=== PATIENT | female | born 1940 | race Hispanic/Latino ===

== ENCOUNTER 2022-10-15 15:22 | Outpatient (CLI) | payer MEDICARE, SELFPAY ==
[2022-10-15 15:46] LABS: Basophils Absolute Auto 0.1 K/mm3 (0.0-0.1); Basophils Percent Auto 0.7 % (0.2-1.2); Eosinophils Absolute Auto 0.3 K/mm3 (0-0.3); Eosinophils Percent Auto 3.5 % (0-4.4); Hematocrit 35.9 % (37.0-47.0); Immature Granulocyte Absolute 0.03 K/mm3 (0.00-0.031); Immature Granulocyte Percent A 0.4 % (0-0.5); Lymphocytes Absolute Auto 1.35 K/mm3 (0.9-3.2); Lymphocytes Percent Auto 19.1 % (18.3-44.2); Mean Corpuscular HGB Conc 33.4 g/dl (32-36); Mean Corpuscular Hemoglobin 31.2 pg (26-34); Mean Corpuscular Volume 93.2 fl (80-100); Mean Platelet Volume 10.4 fl (7.4-10.4); Monocytes Absolute Auto 0.6 K/mm3 (0.1-0.6); Monocytes Percent Auto 8.9 % (2.6-8.5); Neutrophils Absolute Auto 4.8 K/mm3 (1.3-6.7); Neutrophils Percent Auto 67.4 % (45.5-73.1); Platelet Count Result 185 k/mm3 (150-375); Red Blood Count 3.85 M/mm3 (4.2-5.4); Red Cell Distribution Width 13.7 % (11.5-14.5); White Blood Count 7.1 K/mm3 (4.5-10.0)
[2022-10-15 16:32] LABS: Alanine Aminotransferase 37 U/L (6-35); Albumin Level 4.5 g/dL (3.5-5.1); Alkaline Phosphatase 81 U/L (38-126); Anion Gap 6 mmol/L (8-16); Aspartate Amino Transferase 37 U/L (14-36); Bilirubin,Total 0.5 mg/dL (0.2-1.3); Blood Urea Nitrogen 24 mg/dL (7-17); Calcium 9.2 mg/dL (8.4-10.2); Carbon Dioxide 27 mmol/L (22-30); Chloride 105 mmol/L (98-107); Estimated Glomerular Filt Rate 43; Glucose 96 mg/dL (65-110); Potassium 4.2 mmol/L (3.4-5.0); Sodium 138 mmol/L (137-145)
[2022-10-15 16:48] LABS: Immunoglobulin A 475 mg/dL (70-400); Immunoglobulin G 808 mg/dL (700-1600); Immunoglobulin M 136 mg/dL (40-230)
[2022-10-18 13:20] LABS: Kappa\\Lambda Light Chains 0.17 (0.26-1.65)
[2022-10-18 16:10] LABS: Albumin 4.2 g/dL (3.8-4.8); Alpha 1 Globulin 0.3 g/dL (0.2-0.3); Alpha 2 Globulin 0.6 g/dL (0.5-0.9); Beta 1 Globulin 0.5 g/dL (0.4-0.6); Gamma Globulin 0.8 g/dL (0.8-1.7)
== END 2022-10-15 15:23 | disposition home or self-care (01) ==
LOC: ANHLAB 15:30
PROVIDERS: Visit Provider Internal Medicine Hematology & Oncology
DX: D72.9 Disorder of white blood cells, unspecified (principal)
CPT/HCPCS: 36415; 80053; 82784; 83883; 84155; 84165; 85025

== ENCOUNTER 2022-10-15 15:55 | Outpatient (CLI) | payer MEDICARE, SELFPAY ==
--- NOTE | ~2022-10-15 | XR_ITS ---
XR bone survey comp/metastic 10/15/2022 16:36 Indication: Plasma cell disorder Procedure: Complete bone survey. 29 images submitted for interpretation. Comparison: No prior studies for comparison. Findings: There is a sclerotic lesion of the right femoral neck, nonspecific. 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 Accentuated thoracic kyphosis. There is levoscoliosis of the lumbar spine. No fracture or traumatic malalignment. There are subtle lytic defects of the right radius and first metacarpal. Ther e is possible lytic defect of the left mandible. Impression: 1: Subtle lytic defects of the left radius and first metacarpal and possibly the mandible on the left . Sclerotic defect of the right femoral neck. Consider metastatic disease and myeloma. Reviewed, dictated and finalized at location L. Impression: 1: Subtle lytic defects of the left radius and first metacarpal and possibly th e mandible on the left. Sclerotic defect of the right femoral neck. Consider me tastatic disease and myeloma.
== END 2022-10-15 15:56 | disposition home or self-care (01) ==
LOC: ANHIMG 15:57
PROVIDERS: PCP Internal Medicine Hematology & Oncology; Visit Provider Internal Medicine Hematology & Oncology
DX: D72.9 Disorder of white blood cells, unspecified (principal)
CPT/HCPCS: 36415; 77075; 80053; 82784; 83883; 84155; 84165; 85025

== ENCOUNTER 2023-05-03 08:25 | Outpatient (CLI) | payer MEDICARE, SELFPAY ==
[2023-05-03 08:41] LABS: Basophils Absolute Auto 0.1 K/mm3 (0.0-0.1); Basophils Percent Auto 0.7 % (0.2-1.2); Eosinophils Absolute Auto 0.3 K/mm3 (0-0.3); Eosinophils Percent Auto 2.8 % (0-4.4); Hematocrit 36.9 % (37.0-47.0); Immature Granulocyte Absolute 0.04 K/mm3 (0.00-0.031); Immature Granulocyte Percent A 0.4 % (0-0.5); Lymphocytes Absolute Auto 1.71 K/mm3 (0.9-3.2); Lymphocytes Percent Auto 17.6 % (18.3-44.2); Mean Corpuscular HGB Conc 32.5 g/dl (32-36); Mean Corpuscular Hemoglobin 30.4 pg (26-34); Mean Corpuscular Volume 93.4 fl (80-100); Mean Platelet Volume 10.9 fl (7.4-10.4); Monocytes Absolute Auto 0.7 K/mm3 (0.1-0.6); Monocytes Percent Auto 7.3 % (2.6-8.5); Neutrophils Absolute Auto 6.9 K/mm3 (1.3-6.7); Neutrophils Percent Auto 71.2 % (45.5-73.1); Platelet Count Result 181 k/mm3 (150-375); Red Blood Count 3.95 M/mm3 (4.2-5.4); Red Cell Distribution Width 12.7 % (11.5-14.5); White Blood Count 9.7 K/mm3 (4.5-10.0)
[2023-05-03 16:36] LABS: Alanine Aminotransferase 39 U/L (6-35); Albumin Level 4.4 g/dL (3.5-5.1); Alkaline Phosphatase 87 U/L (38-126); Anion Gap 9 mmol/L (8-16); Aspartate Amino Transferase 34 U/L (14-36); Bilirubin,Total 0.7 mg/dL (0.2-1.3); Blood Urea Nitrogen 25 mg/dL (7-17); Calcium 10.1 mg/dL (8.4-10.2); Carbon Dioxide 27 mmol/L (22-30); Chloride 105 mmol/L (98-107); Estimated Glomerular Filt Rate 43; Glucose 100 mg/dL (65-110); Immunoglobulin A 497 mg/dL (70-400); Immunoglobulin G 814 mg/dL (700-1600); Immunoglobulin M 125 mg/dL (40-230); Potassium 4.7 mmol/L (3.4-5.0); Sodium 141 mmol/L (137-145)
[2023-05-06 23:38] LABS: Lambda Light Chain 142.1 mg/L (5.7-26.3)
[2023-05-07 09:00] LABS: Abnormal Protein Band 1 0.5 g/dL; Albumin 4.1 g/dL (3.8-4.8); Alpha 1 Globulin 0.4 g/dL (0.2-0.3); Alpha 2 Globulin 0.6 g/dL (0.5-0.9); Beta 1 Globulin 0.5 g/dL (0.4-0.6); Gamma Globulin 0.9 g/dL (0.8-1.7)
== END 2023-05-03 08:26 | disposition home or self-care (01) ==
PROVIDERS: PCP Internal Medicine Hematology & Oncology; Visit Provider Internal Medicine Hematology & Oncology
DX: D72.9 Disorder of white blood cells, unspecified (principal)
CPT/HCPCS: 36415; 80053; 82784; 83883; 84155; 84165; 85025

== ENCOUNTER 2023-11-11 11:56 | Outpatient (CLI) | payer MEDICARE, SELFPAY ==
[2023-11-11 12:19] LABS: Basophils Absolute Auto 0.1 K/mm3 (0.0-0.1); Basophils Percent Auto 0.9 % (0.2-1.2); Eosinophils Absolute Auto 0.4 K/mm3 (0-0.3); Eosinophils Percent Auto 4.9 % (0-4.4); Hematocrit 35.9 % (37.0-47.0); Hemoglobin 11.2 g/dL (12.0-15.0); Immature Granulocyte Absolute 0.03 K/mm3 (0.00-0.031); Immature Granulocyte Percent A 0.3 % (0-0.5); Lymphocytes Absolute Auto 1.38 K/mm3 (0.9-3.2); Mean Corpuscular HGB Conc 31.2 g/dl (32-36); Mean Corpuscular Hemoglobin 30.4 pg (26-34); Mean Corpuscular Volume 97.6 fl (80-100); Mean Platelet Volume 10.2 fl (7.4-10.4); Monocytes Absolute Auto 0.7 K/mm3 (0.1-0.6); Monocytes Percent Auto 7.9 % (2.6-8.5); Platelet Count Result 220 k/mm3 (150-375); Red Blood Count 3.68 M/mm3 (4.2-5.4); Red Cell Distribution Width 13.5 % (11.5-14.5); White Blood Count 8.6 K/mm3 (4.5-10.0)
[2023-11-11 13:46] LABS: Immunoglobulin A 537 mg/dL (70-400); Immunoglobulin G 680 mg/dL (700-1600); Immunoglobulin M 122 mg/dL (40-230)
[2023-11-11 17:29] LABS: Alanine Aminotransferase 23 U/L (6-35); Albumin Level 4.3 g/dL (3.5-5.1); Alkaline Phosphatase 88 U/L (38-126); Anion Gap 9 mmol/L (4-12); Aspartate Amino Transferase 34 U/L (14-36); Bilirubin,Total 0.6 mg/dL (0.2-1.3); Blood Urea Nitrogen 19 mg/dL (7-17); Calcium 9.9 mg/dL (8.4-10.2); Carbon Dioxide 28 mmol/L (22-30); Chloride 103 mmol/L (98-107); Estimated Glomerular Filt Rate 39; Glucose 97 mg/dL (65-110); Potassium 4.6 mmol/L (3.4-5.0); Sodium 140 mmol/L (137-145)
[2023-11-12 11:43] LABS: Kappa\\Lambda Light Chains 0.14 (0.26-1.65); Lambda Light Chain 214.5 mg/L (5.7-26.3)
[2023-11-13 01:57] LABS: Protein, Total 6.4 g/dL (6.1-8.1)
[2023-11-13 14:58] LABS: Abnormal Protein Band 1 0.5 g/dL (NONE DETECTED); Albumin 3.7 g/dL (3.8-4.8); Alpha 1 Globulin 0.4 g/dL (0.2-0.3); Alpha 2 Globulin 0.5 g/dL (0.5-0.9); Beta 1 Globulin 0.5 g/dL (0.4-0.6); Gamma Globulin 0.7 g/dL (0.8-1.7)
== END 2023-11-11 11:57 | disposition home or self-care (01) ==
LOC: ANHLAB 12:00
PROVIDERS: PCP Internal Medicine Hematology & Oncology; Visit Provider Internal Medicine Hematology & Oncology
DX: D72.9 Disorder of white blood cells, unspecified (principal)
CPT/HCPCS: 36415; 80053; 82784; 83883; 84155; 84165; 85025

== ENCOUNTER 2024-11-11 09:45 | Outpatient (CLI) | payer MEDICARE, SELFPAY ==
--- OUTSIDE RECORDS SUMMARY | 2024-11-11 09:51 | XMS_ITS | Clinical Summary ---
Author Organization [facility] Address [address] [place] [address] Care Team Providers Care Senior Information Security Engineer Name Role Phone Alana Donis MD Primary Care Provider Allergies No known active allergies Medications albuterol sulfate HFA 108 (90 Base) MCG/ACT inhaler INHALE 1 TO 2 PUFFS BY MOUTH EVERY 6 HOURS NEEDED FOR WHEEZING 3 Active amLODIPine (NORVASC) 5 MG tablet Take 1 tablet (5 mg total) by mouth daily. 3 Active vitamin C (ASCORBIC ACID) 500 MG tablet Active vitamin B-12 (CYANOCOBALAMIN ) (CYANOCOBALAMIN ) 1000 mcg tablet Take 1 tablet (1,000 mcg total) by mouth daily. Active fluticasone-jorge alberto meterol (ADVAIR DISKUS) 100-50 MCG/ACT inhaler Inhale 1 puff into the lungs 2 (two) times daily. 3 Active gabapentin (NEURONTIN) 600 MG tablet TAKE 1 TABLET(600 MG) BY MOUTH EVERY NIGHT 3 Active levothyroxine (SYNTHROID) 50 MCG tablet TAKE 1 TABLET(50 MCG) BY MOUTH EVERY MORNING BEFORE BREAKFAST 3 Active lisinopril (PRINIVIL) 40 MG tablet Take 1 tablet (40 mg total) by mouth daily. 3 Active simvastatin (ZOCOR) 20 MG tablet Take 1 tablet (20 mg total) by mouth daily. 3 Active olopatadine (PATADAY) 0.1 % ophthalmic solution Place 1 drop into the right eye 2 (two) times daily. 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 Gender Identity Not on file Sexual Orientation Not on file Last Filed Vital Signs Vital Sign Reading Time Taken Comments Blood Pressure 135/63 08/13/2023 9:06 AM CDT Pulse 82 08/13/2023 9:06 AM CDT Temperature 36.7 C (98 F) 08/13/2023 9:06 AM CDT Respiratory Rate 16 08/13/2023 9:06 AM CDT Oxygen Saturation 96% 08/13/2023 9:06 AM CDT Inhaled Oxygen Concentration - - Weight 65.8 kg (145 lb) 08/13/2023 9:06 AM CDT Height 160 cm (5' 3) 08/13/2023 9:06 AM CDT Body Mass Index 25.69 08/13/2023 9:06 AM CDT Plan of Treatment Health Maintenance Due Date Last Done Comments Zoster Vaccines (1 of 2) 01/21/1988 Annual Medicare Wellness Visit 2003 COVID-19 Vaccine (1 - 2023-2 5 season) 2023 DTaP, Tdap and Td Vaccines ( 2 - Td or Tdap) 12/29/2032 12/29/2022 Pneumococcal Vaccine: 50+ Years Completed RSV Immunization or 60+ Years Completed 12/29/2022 Meningococcal B Vaccine Aged Out No l onger eligible based on patient's age to complete this topic Meningococcal Vaccine Aged Out No porter shawn eligible based on patient's age to complete this topic RSV Immunizations Under 20 Months Aged Out No longer eligible based on patient's age to complete this topic Insurance HUMAN Care Teams Senior Information Security Engineer Relationship Specialty Start Date End Date Alana Donis MD [address] [place], [place] [phone] PCP - General FAMILY PRACTICE 05/09/23
--- OUTSIDE RECORDS SUMMARY | 2024-11-11 09:51 | XMS_ITS | Clinical Summary ---
Author Organization [facility] Gigi Zhu Address [address] [place] [address] Care Team Providers Care Cableway Operator Name Role Phone Unavailable Primary Care Provider Unavailabl e Allergies No known active allergies Medications lisinopriL (PRINIVIL) 40 mg tablet Take 40 mg by mouth daily. 09/10/2022 Active levothyroxine 50 mcg tablet Take 50 mcg by mouth. 08/16/2022 Active amLODIPine (NORVASC) 5 mg tablet Take 5 mg by mouth daily. 08/16/2022 Active cyanocobalamin 1,000 mcg Tablet Take 1,000 mcg by mouth daily. Active gabapentin (NEURONTIN) 600 mg tablet TAKE 1 TABLET(600 MG) BY MOUTH EVERY NIGHT 11/18/2022 Active Creon 36,000-114,000- 180,000 unit capsule TAKE 1 CAPSULE BY MOUTH THREE TIMES DAILY BEFORE MEALS 08/23/2023 Active ondansetron (ZOFRAN ODT) 4 mg Tablet, Rapid Dissolve Take 4 mg by mouth. 10/26/2023 Active polymyxin B sulf-trimethopr im (POLYTRIM) 10,000 unit- 1 mg/mL solution 2 Drops every 6 hours. 08/21/2023 Active promethazine (PHENERGAN) 25 mg tablet TAKE 1/2 TABLET BY MOUTH EVERY 6 HOURS NEEDED 11/12/2023 Active simvastatin (ZOCOR) 20 mg tablet Take 20 mg by mouth daily at bedtime. 08/16/2022 Active tobramycin-dexA METHasone (TOBRADEX) 0.3-0.1 % suspension 09/18/2023 Active Active Problems No known active problems Encounters Date Type Department Care Team Description 10/20/2024 Orders Only [facility] Oncology and Hematology - [place] [address] [place] [address] Vishal Sosa MD 10/14/2024 External Device Data STL ABSTRACTION Provider, Abstract 10/13/2024 External Device Data STL ABSTRACTION Provider, Abstract 10/13/2024 Abstract [facility] Oncology and Hematology [facility] [address] [place] [address] Vishal Sosa MD 09/17/2024 External Device Data STL ABSTRACTION Provider, Abstract 09/16/2024 External Device Data STL ABSTRACTION Provider, Abstract 09/15/2024 External Device Data STL ABSTRACTION Provider, Abstract from Last 3 Months Family History Medical History Relation Name Comments Heart Disease Father Esophageal Cancer Mother Colon Cancer Sister 7 Relation Name Status Comments Father Mother Sister 1 Alive Sister 2 Alive Sister 3 Alive Sister 4 Alive Sister 5 Alive Sister 6 Alive Sister 7 Son 1 Alive Son 2 Alive Social History Tobacco Use Types Packs/Day Years Used Date Smoking Tobacco: Never Smokeless Tobacco: Never Tobacco Cessation:Counseling Given: Not Answered Alcohol Use Standard Drinks/Week Comments Never 0 (1 standard drink = 0.6 oz pur e alcohol) Comments Unknown Sex and Gender Information Value Date Recorded Sex Assigned at Not on file Legal Sex Female 10:59 AM CDT Gender Identity Not on file Sexual Orientation Not on file Last Filed Vital Signs Vital Sign Reading Time Taken Comments Blood Pressure 141/80 05/20/2024 10:09 AM COMMUNITY SERVICE DIRECTOR Pulse 88 05/20/2024 10:07 AM COMMUNITY SERVICE DIRECTOR Temperature 36.7 C (98 F) 05/20/2024 10:07 AM COMMUNITY SERVICE DIRECTOR Respiratory Rate 15 05/20/2024 10:07 AM COMMUNITY SERVICE DIRECTOR Oxygen Saturation 96% 05/20/2024 10:07 AM COMMUNITY SERVICE DIRECTOR Inhaled Oxygen Concentration - - Weight 59.7 kg (131 lb 9.6 oz) 05/20/2024 10:07 AM COMMUNITY SERVICE DIRECTOR Height 160 cm (5' 3) 10/15/2022 2:37 PM CDT Body Mass Index 23.31 10/15/2022 2:37 PM CDT Plan of Treatment Upcoming Encounters Date Type Department Care Team (Late st Contact Info) Description 11/25/2024 10:15 AM CDT Office Visit [facility] Oncology and Hematology - [place] [address] [place] [address] Vishal Sosa MD [address] [facility] [facility] [address] [place] [address] Health Maintenance Due Date Last Done Comments ZOSTER VACCINE (1 of 2) 01/21/1988 RSV VACCINE (60+ or ) (1 - 1-dose 75+ series) 2013 Medicare Advantage ([place]) Prev entative Visit/Annual Wellness Visit 04/29/2024 INFLUENZA VACCINE (#1) 2024 , 01/31/2023, 01/04/2022 OSTEOPOROSIS SCREENING 07/11/2027 07/10/2022, 2022 DTAP/TDAP/TD VACCINES (2 - T d or Tdap) 12/29/2032 12/29/2022 PNEUMOCOCCAL VACCINE 50+ YEARS Completed 01/04/2022 Insurance [employer] [facility]
--- OUTSIDE RECORDS SUMMARY | 2024-11-11 09:51 | XMS_ITS | Data Portability ---
Author Organization [facility] [employer], Main Office Address [address] [place] [address] Care Team Providers Care Stock Order Lister Name Role Phone BEBE DONIS Primary Care Provider Assessment No assessment recorded. Plan of Treatment Reminders Order Date Submit Date Provider Last Modified By Organization Details Last Modified Time Details Appointments None recorded. Lab pancreatic elastase, stool 2022 023 [facility], [address] [place] [address], [address], 3 14:10:34 fecal fat, qualitative , stool 2022 023 [facility], [address] [place] [address], [address], 3 12:03:04 celiac disease comprehensi ve panel, serum 2022 023 [facility], [address] [place] [address], [address], 3 14:01:03 PTH (parathyroi d hormone), intact + calcium, serum or plasma [address] [facility], [address] [place] [address], [address], 3 14:39:02 calcium, ionized, blood [address] [facility], [address] [place] [address], [address], 3 14:39:03 phosphorus, serum or plasma [address] [facility], [address] [place] [address], [address], 3 14:39:02 CMP, serum or plasma 2022 023 [facility], [address] [place] [address], [address], 3 12:08:47 vitamin D, 25-hydroxy, total, serum 2022 023 [facility], [address] [place] [address], [address], 3 14:01:07 phosphorus, serum or plasma [address], [address] [place] [address], [address], 3 14:39:02 spep + immunoglobu nabeel, serum [address], [address] [place] [address], [address], 3 14:39:03 immunofixat ion, serum 2022 023 [facility], [address] [place] [address], [address], 3 15:52:35 TSH, serum or plasma [address] [facility], [address] [place] [address], [address], 3 14:39:02 T3, free, serum or plasma [address], [address] [place] [address], [address], 3 14:39:02 T4, free, serum 2022 023 [email or web address] [facility], [address] [place], [address], 14:39:02 Referral None recorded. Procedures None recorded. Surgeries None recorded. Imaging None recorded. Medication Orders Creon 36,000 unit-114,00 0 unit-180,00 0 unit capsule,del ayed release 2022 023 [id number], [address] [place], [place], [id number], 10:45:13 Unithroid 50 mcg tablet 2022 023 [facility][id number], [address] [place], [place], [id number], 10:45:59 Patient TargetsNo targets recorded. Patient InstructionsNo instructions recorded. Reason for Referral None Reported. Results Created Date Observation Date Name Description Value Unit Range Abnormal Flag Note LastModifiedBy Organization Detail LastModifiedTime Result Notes None recorded. Problems Name Problem SNOMED Code Status Onset Date Resolution Date Notes Provider Name and Address Organization Details Recorded Time Hypercalcemia 24708600 Active 2022 MD Paxton Palom[address], [place], [address], [employer] [facility] [employer] 3 14:35:44 Hypothyroidism 40646113 Active 2022 MD Paxton [address], [place], [address], [employer] 3 14:37:31 Loose stool 434473003 Active 2022 MD Paxton [address], [address], [facility] [employer] 3 14:38:13 Protein electrophoresi s outside reference range 172817429 Active 2022 MD Paxton [address], [place], [address], [facility] [employer] [facility] 3 16:34:10 Exocrine pancreatic insufficiency 95262460 Active 2022 Snow Mejía MD [address], [place], [address], [facility] [employer] [facility] 3 10:41:57 Problem Notes None recorded. Procedures Surgical History Date Name Laterality Status Provider Name and Address Organization Details Recorded Time Gallbladder Surgery completed Malika Cowart [facility] [employer] [facility] 07/30/2022 14:25:34 Carpal tunnel completed Malika Cowart [facility] [employer] [facility] 07/30/2022 14:25:41 Imaging Results None recorded. Procedure Notes None recorded. Medical Equipment None Reported. Allergies No known drug allergies Medications Name Sig Start Date Stop Date Status Note LastModified by Organization Details LastModified Time gabapentin 600 mg tablet active Not Available Not Available Not Available azithromyci n 250 mg tablet TAKE 1 TABLET BY MOUTH DAILY FOR 4 DAYS 11/29 completed Not Available Not Available Not Available ibuprofen 800 mg tablet take 1 tablet by mouth three times a day if needed with food 11/29 completed Not Available Not Available Not Available cephalexin 250 mg capsule 11/29 completed Not Available Not Available Not Available acetaminoph en 300 mg-codeine 30 mg tablet TAKE 1 TABLET BY MOUTH EVERY 6 HOURS NEEDED FOR PAIN 11/29 completed Not Available Not Available Not Available amlodipine 5 mg tablet take 1 tablet by mouth once daily active Not Available Not Available No t Available quinapril 40 mg tablet TAKE 1 TABLET BY MOUTH EVERY DAY 07/31 completed Not Available Not Available Not Available hydrocodone -homatropin e 5 mg-1.5 mg tablet TAKE 1 TABLET BY MOUTH FOUR TIMES DAILY NEEDED FOR COUGH 11/29 completed Not Available Not Available Not Available benzonatate 100 mg capsule TAKE 1 CAPSULE BY MOUTH EVERY EIGHT HOURS 11/29 completed Not Available Not Available Not Available simvastatin 20 mg tablet TAKE 1 TABLET BY MOUTH EVERY DAY IN THE EVENING active Not Available Not Available No t Available Unithroid 50 mcg tablet Take 1 tablet every day by oral route in the morning for 90 days. 2022 active Not Available Not Available Not Avai lable gabapentin 300 mg capsule 11/29 completed Not Available Not Available Not Available albuterol sulfate HFA 90 mcg/actuati on aerosol inhaler INHALE 1 TO 2 PUFFS BY MOUTH EVERY 6 HOURS NEEDED FOR WHEEZING active Not Available Not Available No t Available lisinopril 40 mg tablet active Not Available Not Available Not Available Creon 36,000 unit-114,00 0 unit-180,00 0 unit capsule,del ayed release TAKE 1 CAPSULE BY MOUTH THREE TIMES DAILY BEFORE MEALS active Not Available Not Available No t Available Vitals Date Recorded Body weight Body temperature Heart rate Systolic And Diastolic Provider Name and Address Organization Details Last Updated DateTime 07/31/2022 20568.67 g 97.5 [degF] 80 /min 128/80 mm[Hg] TRACIE Puente [facility] [employer] [facility] 07/31/2022 14:07:39 Date Recorded Body weight Body mass index (BMI) Body height Heart rate Systolic And Diastolic Provider Name and Address Organization Details Last Updated DateTime 11/29/2022 57328.58 g 25.5 kg/m2 160.02 cm 88 /min 137/81 mm[Hg] Darcie Alexis [facility] [employer] [facility] 11/29/2022 10:24:38 Social History Question Answer Notes LastModified by Organizat ion Details LastModified Time Tobacco Smoking Status Never Smoker TRACIE Jalloh [facility] [employer] [facility] 07/30/2022 14:25:03 What Is Your Level Of Caffeine Consumption? Occasional Information not available 07/30/2022 What Type Of Diet Are You Following? REGULAR Information not available 07/30/2022 Sex: Unknown Functional Status None recorded. Mental Status None recorded. Family History Relationship Description Onset Age of this Age Resolved Age Notes LastModified by Organization Details LastModified Time Mother Malignant tumor of pharynx clouvier Not available 2022 14:25:16 Medical History Condition Response THYROID DISEASE Y HEART ARRHYTHMIA Y HYPERTENSION Y Gynecological HistoryNo gynecological history recorded. Obstetrics History GPAL:G 0 P 0 0 0 0 Past Encounters Encounter ID Performer Location Encounter Start Date Encounter Closed Date Diagnosis/Indication Diagnosis SNOMED-CT Code Diagnosis ICD10 Code Diagnosis Note [id number] Snow Mejía MD [facility] [address] [place] [address] 07/31/2022 13:54:33 07/31/2022 14:45:57 Hypercalcemia 77867433 E83.52 Send for full parathyroi d panel along with SPEP/immun ofixation to screen for secondary causes of hypercalce christopher. Patient is not taking any additional sources of calcium such as tums or rolaids or calcium containing antacids and was encouraged to abstain from these supplement s Hypothyroidism 10369844 E03.9 Continue on LT4 50 mcg daily. She was reminded to take her LT4 on empty stomach with glass of water and wait one hour to eat or have her coffee in morning and up to 4 hours if ever taking any heartburn or reflux medication s to help optimize absorption . Loose stool 089347862 R1 9.5 Send for elastase and fecal fat to screen for EPI or malabsorpt ion. Spent up to 45 minutes preparing to see the patient (eg, review of tests), obtaining and/or reviewing separately obtained history, performing a medically appropriat e examinatio n and evaluation , counseling and educating the patient, ordering medication s, tests, along with documentin g clinical informatio n in the electronic health record, independen tly interpreti ng results and communicat ing results to the patient. RTC in 3-4 months. Patient was provided a handwritte n lab order which contains our fax number. If she chooses to go outside of the [facility] system to obtain labwork she was advised to provide our fax number and my informatio n to the lab she will be obtaining labwork from in order to have her labs properly forwarded over for me to review so there is no loss of follow up due to use of outside network. She was also advised to contact our clinic informing us that she has completed her labwork so we are aware we will need to reach out to the appropriat e laboratory to request her results be forwarded to us so I might have the ability to review and make further medical decision making in her case. She voiced understand ing. Thank you for this consultati on. [id number] MD JESSICA [facility] [address] [place] [address] 11/29/2022 10:11:04 11/29/2022 10:48:13 Hypothyroidism 14949764 E03.9 Continue on unithroid 50 mcg daily. She was reminded to take her LT4 on empty stomach with glass of water and wait one hour to eat or have her coffee in morning and up to 4 hours if ever taking any heartburn or reflux medication s to help optimize absorption . Exocrine p ancreatic insufficiency 07172358 K86.81 Trial on pancreatic enzymes as her elastase is low and she does have chronic diarrhea and bloating. Provided samples of zenpep however appears creon is cheaper and better covered on her formulary- she is aware to take only if she is eating a full meal two to three times daily. She voiced understand ing and aware se may have to see gastroente rology in future if no improvemen t or further concerns should arise. Protein electrophoresis outside reference range 256659900 R89.8 Seeing hematology - may have underlying MGUS but will be monitored regularly to assess for any new or proliferat pravin concerns or changes. Spent up to 25 minutes preparing to see the patient (eg, review of tests), obtaining and/or reviewing separately obtained history, performing a medically appropriat e examinatio n and evaluation , counseling and educating the patient, ordering medication s, tests, along with documentin g clinical informatio n in the electronic health record, independen tly interpreti ng results and communicat ing results to the patient. Patient can be followed by PCP - she/he is aware of my resignatio n and last day of February 08. If needed his/her PCP can refer patient to another endocrinol ogist in the area. All questions /concerns answered and refills necessary at visit today. Health Concerns Section Related Observation LastModified by Organization Detai ls LastModified Time None Recorded Concern Status LastModified by Organization Details LastModified Time None Recorded Advance Directives Directive None Recorded Payers Insurance Date Sequence Insurance Name Policy Number Policy Flores Covered Member ID Flores Member ID Guarantor Name 11/27/2022 1 [employer] (MEDICARE REPLACEMENT/ ADVANTAGE - HMO) Irene Bourgeois [id number] Irene Bourgeois Notes Date Note Type Note Provider Name and Address Organization Details Recorded Time 07/31/2022 text/html 82 yo female com es in as referral by courtesy of Dr. Donis for management and evaluation of hypercalcemia. To note she has a history of hypothyroidism. She has no hx of kidney stones or broken bones. She is taking LT4 50 mcg daily for hypothyroidism. She has some fatigue but no dizziness or feeling of off balance. She does have some trouble sleeping but denies any hypertension, chest pain or other new concerns. She does have some intermittent flank pain on left side that might be c/w kidney stones. labs from 04/19:Cr 1.22 mg/dLglucose 120 mg/dLcalcium 10.5 mg/dL Snow Mejía MD [address], [place], [address], [employer] 07/31/2022 15:20:07 11/29/2022 text/html 82 yo female com es in for follow up in management of hypothyroidism found to have hypercalcemia and abnormal IGA paraprotein-to note new finding of EPI in setting of chronic diarrhea. last / initial visit in July at that time we continued unithroid 50 mcg daily and sent for labwork. we have since referred to hematology due to abnormal protein finding She will be following up with hematology to manage further. She does continue to have loose stools/diarrhea following her meals- her elastase was low. 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
--- OUTSIDE RECORDS SUMMARY | 2024-11-11 09:51 | XMS_ITS | Clinical Summary ---
Author Organization [address] Address [address] [place] [id number] Care Team Providers Care Superintendent [employer]otive Name Role Phone Alana Donis MD Primary Care Provi flor Denver Camacho MD Unavailable Jose Rubio MD Unavailable Vishal Sosa MD Unavailable [phone] Woo Santos MD Unavailable [phone] Gordon Castro MD Unavailable [phone] Allergies No known active allergies Medications ascorbic acid (VITAMIN C) 500 mg tablet,chewable Take 1 tablet/chew tab (500 mg total) by mouth daily Active cyanocobalamin (Vitamin B-12) 1,000 mcg tabletIndications :Prevention of Vitamin B12 Deficiency Take 1 tablet (1,000 mcg total) by mouth daily Active miscellaneous medical supply (Blood Pressure Cuff) miscIndications:H ypertension, essential Use to check blood pressure daily 1 each 022 Active fluticasone propion-salmetero L (ADVAIR DISKUS) 100-50 mcg/dose diskus inhaler Inhale 1 puff 2 (two) times a day Rinse mouth with water after use. Do not swallow. 60 each 023 Active albuterol HFA (PROVENTIL HFA,VENTOLIN HFA,PROAIR HFA) 90 mcg/actuation inhalerIndication s:Dyspnea on exertion INHALE 1 TO 2 PUFFS BY MOUTH EVERY 6 HOURS NEEDED FOR WHEEZING 18 g 5 023 Active docusate sodium (COLACE) 100 mg capsuleIndication s:constipation Take 1 capsule (100 mg total) by mouth daily as needed for constipation 90 capsule 1 024 Active cholecalciferol (VITAMIN D-3) 1,000 unit Take 1 tablet/capsule (1,000 Units total) by mouth daily 90 capsule 3 024 2024 Active amLODIPine (NORVASC) 10 mg tablet TAKE 1 TABLET(10 MG) BY MOUTH DAILY 90 tablet 3 025 Active traMADoL (ULTRAM) 50 mg tablet Take by mouth every 6 (six) hours as needed 025 Active mirtazapine (REMERON) 15 mg tablet Take 1 tablet (15 mg total) by mouth nightly 90 tablet 3 025 2025 Active levothyroxine (SYNTHROID) 50 mcg tabletIndications :Acquired hypothyroidism TAKE 1 TABLET(50 MCG) BY MOUTH EVERY MORNING BEFORE BREAKFAST 90 tablet 3 025 Active aspirin 81 mg chewable tablet CHEW AND SWALLOW 1 TABLET(81 MG) BY MOUTH DAILY 90 tablet 1 025 Active lisinopriL (PRINIVIL,ZESTRIL ) 30 mg tablet TAKE 1 TABLET(30 MG) BY MOUTH DAILY 90 tablet 025 Active simvastatin (ZOCOR) 20 mg tabletIndications :Other hyperlipidemia TAKE 1 TABLET(20 MG) BY MOUTH EVERY NIGHT 90 tablet 3 025 Active simvastatin (ZOCOR) 20 mg tabletIndications :Other hyperlipidemia TAKE 1 TABLET(20 MG) BY MOUTH EVERY NIGHT 90 tablet 3 024 2024 Discontinued lisinopriL (PRINIVIL,ZESTRIL ) 30 mg tablet TAKE 1 TABLET(30 MG) BY MOUTH DAILY 90 tablet 1 025 2024 Discontinued Active Problems Problem Noted Date Diagnosed Date Anemia due to stage 4 chronic kidney disease History of transcatheter aortic valve replacemen t (TAVR) 05/21/2024 OG (obstructive sleep apnea) 07/16/2023 Assessment & Plan (02/25/2024 2:47 PM CDT): Due to continued symptoms, the patient continue CPAP at 16 cm water pressure. I have provided the patient a different style of mask. The patient would like to call into the office when she chooses a mask that she would like ordered. DME [facility] Assessment & Plan (07/16/2023 12:29 PM CDT): Due to the eye puffiness and leakage, I have decreased the pressure to 16 cm water pressure. I also provided the patient an F30 mask to see if this may help. DME is [facility] PLMD (periodic limb movement disorder) Assessment & Plan (02/25/2024 2:46 PM CDT): Asymptomatic Assessment & Plan (07/16/2023 12:28 PM CDT): Currently asymptomatic. The patient was ordered iron and ferritin level Monoclonal gammopathy of undetermined significan ce 05/29/2023 Overview (05/29/2023): chronic, stable managed by Assessment & Plan (02/28/2024 11:45 AM CDT): Chronic. Stable. Encouraged to contact the oncology office and notify if weight loss, may need to be seen sooner. Assessment & Plan (08/21/2023 8:10 AM CDT): Chronic, stable Managed by Oncology Follow-up visit this summer Continue active surveillance through Oncology Snoring 01/21/2023 Assessment & Plan (01/21/2023 2:15 PM CDT): The patient presents with snoring, witnessed apneas and excessive daytime hypersomnia. I have recommended proceeding with a nocturnal polysomnogram with a split night protocol if necessary and no MSLT. The patient will follow-up here in 3 months. Mild intermittent asthma 01/04/2023 Assessment & Plan (05/29/2023 1:44 PM ASSISTANT PROFESSOR OF DIETETICS): Chronic, uncertain if progression She has noticed a cough which is improved by Advair We discussed adjusting her dose, she will consider Update me if her symptoms change or worsen Call for questions Chronic diastolic congestive heart failure 01/04 Assessment & Plan (05/29/2023 1:43 PM ASSISTANT PROFESSOR OF DIETETICS): Chronic, stable Continue current regimen Keep appointment with Cardiology at the end of May Update me with any changes or concerns Exocrine pancreatic insufficiency 11/29/2022 Assessment & Plan (12/20/2022 9:57 AM CDT): Chronic, previously followed by endo We can certainly continue it given her endo retired She feels that her symptoms are improved with zenpep Update me when she needs a refill Call for questions Pulmonary nodules 10/21/2022 Overview (10/21/2022): will reach out to radiology-?when to recheck CT Assessment & Plan (05/29/2023 1:44 PM ASSISTANT PROFESSOR OF DIETETICS): Acute, improved Continue to follow with Pulmonary No need for further imaging at this time Assessment & Plan (12/20/2022 9:57 AM CDT): Chronic Follow up CT scan ordered Update me with any concerns Call for questions Dyspnea on exertion 10/17/2022 Assessment & Plan (12/20/2022 9:56 AM CDT): Chronic She is following with both pulm and cardiology PFT's pending Continue inhaler Continue to monitor her symptoms Call for questions Encounter for Medicare annual wellness exam 07/29 Overview (05/21/2024): Reviewed healthy diet changes and activity to her level Patient has both POA and living will Health Maintenance: Last mammogram: declined Last DEXA:06/2022- low bone mass-ordered Last Tdap: Up-to-date Last pneumonia: up to date Last Shingrix: encouraged Last Flu: Up-to-date Last COVID: Up-to-date Test results: if you have not received communication about test results within 7 days of the test being performed, please contact the office. I strongly encourage myChart sign ups. It can facilitate communication flow. Please contact the office for instructions on signing up. Assessment & Plan (05/21/2024 4:47 PM ASSISTANT PROFESSOR OF DIETETICS): Reviewed healthy diet changes and activity to her level Patient has both POA and living will Health Maintenance: Last mammogram: declined Last DEXA:06/2022- low bone mass-ordered Last Tdap: Up-to-date Last pneumonia: up to date Last Shingrix: encouraged Last Flu: Up-to-date Last COVID: Up-to-date Test results: if you have not received communication about test results within 7 days of the test being performed, please contact the office. I strongly encourage myChart sign ups. It can facilitate communication flow. Please contact the office for instructions on signing up. Assessment & Plan (08/16/2022 10:23 AM CDT): Reviewed healthy diet changes and activity to her level Patient has both POA and living will Health Maintenance: Last mammogram: declined Last DEXA:06/2022- low bone mass Last Tdap: reviewed Last pneumonia: up to date Last Shingrix: encouraged Last Flu: encouraged Last COVID: encouraged Test results: if you have not received communication about test results within 7 days of the test being performed, please contact the office. I strongly encourage myChart sign ups. It can facilitate communication flow. Please contact the office for instructions on signing up. Low bone mass 08/16/2022 Assessment & Plan (08/16/2022 10:29 AM CDT): Continue to follow with endo Chronic pain syndrome 08/16/2022 Assessment & Plan (02/28/2024 11:45 AM CDT): Chronic. Currently with exacerbation in the low back and right leg. Nausea with gabapentin, try to switch to Lyrica 25 mg nightly. Discussed side effects with patient. If no improvement in 1-2 weeks, please let me know and we can consider increasing dose. Assessment & Plan (12/20/2022 9:55 AM CDT): Chronic, stable Continue to follow with pain management Update me with any changes Nonrheumatic aortic valve stenosis 08/16/2022 Overview (08/16/2022): chronic, stable continue to follow with cardiology Assessment & Plan (08/21/2023 8:11 AM CDT): Chronic, worse on last echo Currently being set up for TAVR Keep me updated with how she is doing Update me with any changes or concerns Abnormal SPEP 08/13/2022 08/16/2022 Assessment & Plan (12/20/2022 9:57 AM CDT): Chronic Follow up with oncology Update me after the next visit Assessment & Plan (08/16/2022 10:24 AM CDT): Referral to heme placed by endo Will try to get info regarding this Abnormal serum protein electrophoresis Assessment & Plan (12/20/2022 9:54 AM CDT): Chronic, stable Continue to follow with oncology Update me after the last visit Call for questions or concerns Pain in joint of right shoulder 03/27/2022 Assessment & Plan (08/16/2022 10:31 AM CDT): Chronic, persistent Continue to follow with pain management Carpal tunnel syndrome on left 03/07/2022 Overview (03/07/2022): Added automatically from request for surgery [id number] Assessment & Plan (08/16/2022 10:44 AM CDT): Chronic, improved post surgery Continue supportive care Update me if it worsens Carpal tunnel syndrome on right 02/20/2022 Overview (02/20/2022): Added automatically from request for surgery [id number] Assessment & Plan (08/16/2022 10:44 AM CDT): Chronic, improved post surgery Continue supportive care Update me if it worsens Primary hypertension 12/13/2021 Assessment & Plan (08/21/2023 8:11 AM CDT): Chronic, stable -though low this morning, it has been running well on her current regimen Continue her current regimen for now Continue to monitor Assessment & Plan (05/29/2023 1:44 PM ASSISTANT PROFESSOR OF DIETETICS): Chronic, stable Continue her current regimen Assessment & Plan (08/16/2022 10:29 AM CDT): Chronic, stable Continue current regimen Continue healthy changes Assessment & Plan (03/15/2022 10:21 AM ASSISTANT PROFESSOR OF DIETETICS): Chronic, with progression Will have her check it at home- blood pressure cuff ordered Continue accupril, norvasc for now Will recheck bmp Update me in 1 week with her blood pressure Call for questions Assessment & Plan (12/13/2021 2:43 PM CDT): Chronic, stable Blood pressure under fair control Will continue her current regimen- quinapril, norvasc Will check labs Other hyperlipidemia 12/13/2021 Assessment & Plan (08/16/2022 10:31 AM CDT): Chronic, stable Continue zocor Assessment & Plan (12/13/2021 2:44 PM CDT): Labs ordered Continue zocor Call for questions or concerns Acquired hypothyroidism 12/13/2021 Assessment & Plan (02/28/2024 11:44 AM CDT): Chronic. Within normal limits at last check 9 months ago. Given recent weight loss, recheck TSH ordered today. Assessment & Plan (05/29/2023 1:43 PM ASSISTANT PROFESSOR OF DIETETICS): Chronic, stable Continue current dose of levothyroxine Assessment & Plan (12/20/2022 9:55 AM CDT): Chronic, stable Continue current dose of levothyroxine Assessment & Plan (08/16/2022 10:25 AM CDT): Chronic, stable Continue current dose of levothyroxine Continue to follow with endo Assessment & Plan (12/13/2021 2:45 PM CDT): Labs ordered Continue synthroid Osteoarthritis 03/11/2018 Assessment & Plan (08/16/2022 10:31 AM CDT): Chronic persistent Continue to follow with pain mangement Continue supportive care Chronic kidney disease 03/03/2018 Assessment & Plan (02/28/2024 11:46 AM CDT): Chronic. Progressing to stage IV over the last couple of months. May be contributing to lack of appetite? Continue to follow with nephrology. Assessment & Plan (08/21/2023 8:09 AM CDT): Chronic, stable Managed by Nephrology Continue lisinopril 30 mg daily Assessment & Plan (05/29/2023 1:43 PM ASSISTANT PROFESSOR OF DIETETICS): Chronic, stable Referral to Nephrology given that she is in CKD stage 3 on lisinopril Update me after the visit Call for questions Assessment & Plan (08/16/2022 10:27 AM CDT): Chronic Continue to monitor Continue lisinopril Resolved Problems Problem Noted Date Diagnosed Date Resolved Date Severe aortic stenosis 09/12/202305/21 Stage 3b chronic kidney disease 06/06/2022 08/16/2022 Hypercalcemia 09/16/2018 05/21/2024 Assessment & Plan (08/16/2022 10:28 AM CDT): Chronic Currently follow with Dr Mejía Will request notes Update me with any changes Hyperkalemia 09/16/2018 05/21/2024 Assessment & Plan (05/29/2023 1:43 PM ASSISTANT PROFESSOR OF DIETETICS): Acute, new ? Related to lisinopril Will recheck Consider adjusting her regimen if still elevated Assessment & Plan (08/16/2022 10:28 AM CDT): Resolved Continue to monitor Encounters Date Type Department Care Team Description 11/07/2024 6:50 AM CDT - 11/07/2024 11:59 PM CDT Hospital Encounter [facility] MRI [address] [place] [address] Cervical pain Discharge Disposition: Discharge to home or self care 09/16/2024 10:26 AM CDT - 09/16/2024 11:59 PM CDT Hospital Encounter [facility] MOB 1 DIAG IMG [address] [place] [id number] Bilateral primary osteoarthritis of knee Discharge Disposition: Discharge to home or self care 09/16/2024 Results Follow-Up [facility] [address] [place] [phone] Alana Donis MD Dexa Axial Skeleton Bone Density 1 or 2 Site 09/07/2024 2:30 PM CDT - 09/07/2024 11:59 PM CDT Hospital Encounter [facility] MOB 1 DIAG IMG [address] [place] [phone] Discharge Disposition: Discharge to home or self care 09/04/2024 1:41 PM CDT - 09/04/2024 11:59 PM CDT Hospital Encounter [facility] Medical Office Bldg 1 Breast [facility] [address] [facility] [address] [place] [address] Screening for osteoporosis Discharge Disposition: Discharge to home or self care 09/04/2024 12:54 PM CDT - 09/04/2024 11:59 PM CDT Hospital Encounter [facility] MOB 1 DIAG IMG [address] [place] [id number] Right shoulder pain, unspecified chronicity; Cervical pain; Pain Discharge Disposition: Discharge to home or self care from Last 3 Months Immunizations Immunization Administration Dates Next Due Influenza, Quadrivalent, Hig h Dose, Preservative Free, Intrr 01/31/2023,01/04/2022 Influenza, Trivalent, High D ose, Split, Preservative Free, Intramuscular 01/08/2024 Influenza, Unspecified 12/28/2020 Pneumococcal Conjugate Pcv20 01/04/2022 RSV Vaccine, Pref, Recombina nt, Subunit, Adjuvanted, PF, IM (Arexvy) 01/08/2024 RSV, Bivalent, Protein Subun it Rsvpref, Diluent (Abrysvo) 12/29/2022 Sars-cov-2 Covid-19 Mrna, Bi valent, Original/omicron Ba.1, A 01/31/2023 Tdap 12/29/2022 Surgical History Surgery Date Site/Laterality Comments CHOLECYSTECTOMY CARPAL TUNNEL RELEASE 03/07/2022 Right UMBILICAL HERNIA REPAIR 48 years ago COLONOSCOPY ESOPHAGOGASTRODUODENOSCOPY CARDIAC CATHETERIZATION CATARACT EXTRACTION AORTIC VALVE REPLACEMENT 04/29/2023 - 04/28/2024 ENTROPION REPAIR 11/04/2023 Right in office entropian repair rt lower eyelid Medical History Medical History Date Comments Hypertension Hypothyroidism Heart murmur Arthritis Severe aortic stenosis Allergic rhinitis Asthma Wears glasses Wears dentures upper Dental bridge present lower Hyperlipidemia Stage 3b chronic kidney disease (CKD) (HCC) Sleep apnea cpap at night Pulmonary nodule Shoulder pain Family History Medical History Relation Name Comments Heart disease Father Maco Cancer Mother Makenna Kidney disease Sister Relation Name Status Comments Father Maco Mother Makenna Sister Social History Tobacco Use Types Packs/Day Years Used Date Smoking Tobacco: Never Passive Smoke Exposure: Past Smokeless Tobacco: Never Tobacco Cessation:Counseling Given: Not Answered [employer] Utilities Answer Date Recorded In the past 12 months has [employer], [employer], or water [employer] threatened to shut off services in your home? No 10/02/2023 Social Connection and Isolat ion Panel [NHANES] Answer Date Recorded In a typical week, how many times do you talk on the phone with family, friends, or neighbors? More than three times a week 10/02/2023 How often do you get togethe r with friends or relatives? More than three times a week 10/02/2023 How often do you attend [facility] or protestant services? 1 to 4 times per year 10/02/2023 Do you belong to any clubs o r organizations such as uatsdin groups, unions, fraternal or athletic groups, or school groups? No 10/02/2023 How often do you attend meet ings of the clubs or organizations you belong to? Never 10/02/2023 Are you , , di vorced, , never , or living with a partner? 10/02/2023 AUDIT-C Answer Date Recorded Q1: How often do you have a drink containing alcohol? Never 05/21/2024 Q2: How many drinks containi ng alcohol do you have on a typical day when you are drinking? Patient does not drink Q3: How often do you have si x or more drinks on one occasion? Never 05/21/2024 Overall Financial Resource Strain (CARDIA) Answe r Date Recorded How hard is it for you to pa y for the very basics like food, housing, medical care, and heating? Not very hard 10/02/2023 PHQ-2 Answer Date Recorded PHQ-2 Total Score (If total score is 3 or more points, staff should administer the PHQ-9) 0 05/21/2024 Hunger Vital Sign Answer Date Recorded Within the past 12 months, y ou worried that your food would run out before you got the money to buy more. Never true 10/02/19 24 Within the past 12 months, t he food you bought just didn't last and you didn't have money to get more. Never true 10/02/2023 PRAPARE - Transportation Answer Date Re corded In the past 12 months, has l ack of transportation kept you from medical appointments or from getting medications? No 08/2023 In the past 12 months, has l ack of transportation kept you from meetings, work, or from getting things needed for daily living? No 10/02/2023 Housing Stability Vital Sign Answer Alphonso e Recorded In the last 12 months, was t here a time when you were not able to pay the mortgage or rent on time? No 10/02/2023 In the past 12 months, how m any times have you moved where you were living? 0 10/02/2023 At any time in the past 12 m [facility], were you homeless or living in a residential (including now)? No 10/02/2023 Personal Safety Answer Date Recorded Have you ever been in or are you currently in a harmful physical or emotional relationship or is someone making you feel afraid or unsafe? Denies 01/06/2024 Comments No Sex and Gender Information Value Date Recorded Sex Assigned at Not on file Legal Sex Female 4:11 PM CDT Gender Identity Not on file Sexual Orientation Not on file Obstetrics History Last Filed Vital Signs Vital Sign Reading Time Taken Comments Blood Pressure 119/76 07/22/2024 9:38 AM CDT Pulse 92 07/22/2024 9:38 AM CDT Temperature 36.6 C (97.8 F) 07/22/2024 9:38 AM CDT Respiratory Rate 12 05/21/2024 1:32 PM ASSISTANT PROFESSOR OF DIETETICS Oxygen Saturation 95% 05/27/2024 1:42 PM ASSISTANT PROFESSOR OF DIETETICS Inhaled Oxygen Concentration - - Weight 56.5 kg (124 lb 9.6 oz) 07/22/2024 9:38 A M CDT Height 160 cm (5' 2.99) 07/22/2024 9:38 AM CDT Body Mass Index 22.08 07/22/2024 9:38 AM CDT Plan of Treatment Health Maintenance Due Date Last Done Comments Hepatitis B Screening 01/21/1958 Zoster Vaccine (1 of 2) 01/21/1988 Influenza Vaccine (#1) 2024 , 01/31/2023, 01/04/2022, Additional history exists Depression Screening 05/21/2025 05/21/2024, 02/28/2024, 11/06/2023, Additional history exists Fall Risk Assessment 05/21/2025 05/21/2024, 10/02/2023, 08/16/2022, Additional history exists Well Visit 65+ 05/21/2025 05/21/2024, /, 08/16/2022 Osteoporosis Screening-Bone Density Scan 09/04/2026 09/04/2024, 07/10/2022, 07/10/2022 DTaP/Tdap/Td Vaccine (2 - Td or Tdap) 12/29/2032 12/29/2022 Pneumococcal vaccine 65+ Completed 01/04/2022 Medical Devices Implanted Type Area Home Care Assistant Device Identifier Shelf Expiration Date Model / Serial / Lot [employer] V[employer] System Closure Repair Femoral Artery Suture Mediated Perclose Prostyle 41866-92 - [id number] Implanted:Qty: 1 on 10/01/2023 by Denver Camacho MD at [facility] Vascular Closure Device Left: Femoral [employer] 11/27/2023 [id number] / / [id number] [employer] V[employer] System Closure Repair Femoral Artery Suture Mediated Perclose Prostyle 21749-00 - [id number] Implanted:Qty: 1 on 10/01/2023 by Denver Camacho MD at [facility] Vascular Closure Device Left: Femoral [employer] 06/26/2025 [id number] / / [id number] [employer] Angio-Seal Vip 6fr Closere Device [id number] - [id number] Implanted:Qty: 1 on 10/01/2023 by Facundo Reyna MD at [facility] Right: Femoral [employer] 05/06/2024 [id number] / / [id number] [employer] Valve Heart 23mm Shaina 3 Transcatheter [id number] - [id number] - [id number] Implanted:Qty: 1 on 10/01/2023 by Denver Camacho MD at [facility] Aortic Valve [employer] [id number] 11/06/2025 [id number] / [id number] / Procedures Procedure Name Priority Date/Time Associated Diagnosis Comments MRI CERVICAL SPINE WO CONTRAST Schedule Routine, Read Routine (OP Routine) 11/07/2024 7:14 AM CDT Cervical pain XR KNEE RIGHT 1 OR 2 VIEWS Schedule Routine, Read Routine (OP Routine) 09/16/2024 10:36 AM CDT Bilateral primary osteoarthritis of knee XR KNEE LEFT 1 OR 2 VIEWS Schedule Routine, Read Routine (OP Routine) 09/16/2024 10:36 AM CDT Bilateral primary osteoarthritis of knee XR SPINE CERVICAL 2 OR 3 VIEWS Schedule Routine, Read Routine (OP Routine) 09/07/2024 3:36 PM CDT Cervical pain DEXA AXIAL SKELETON BONE DENSITY 1 OR MORE SITES Schedule Routine, Read Routine (OP Routine) 09/04/2024 1:58 PM CDT Screening for osteoporosis XR SHOULDER LEFT 2 OR MORE VIEWS Schedule Routine, Read Routine (OP Routine) 09/04/2024 1:43 PM CDT Pain XR SHOULDER RIGHT 2 OR MORE VIEWS Schedule Routine, Read Routine (OP Routine) 09/04/2024 1:43 PM CDT Right shoulder pain, unspecified chronicity from Last 3 Months Results * MRI Cervical Spine WO Contrast (11/07/2024 7:14 AM CDT) Anatomical Region Laterality Modality Spine N/A Magnetic Resonan ce 11/09/2024 9:51 AM CDT Narrative 11/09/2024 9:56 AM CDT EXAM DESCRIPTION: MRI CERVICAL SPINE WO CONTRAST REASON FOR STUDY: Chronic nontraumatic neck pain radiating into the right shoulder, worsening over the past year. No provided history of inciting and/or aggravating events. No provided past medical or surgical history. TECHNIQUE: Sagittal and axial imaging of the cervical spine includes T1, T2, STIR and gradient echo sequences. Images saved to PACS. COMPARISON: Cervical spine radiograph 09/07/2024; DEXA scan 09/04/2024: Reported as low bone mass. FINDINGS: ALIGNMENT: Variable minimal to mild stair step anterolisthesis C3 on C4, variable minimal to mild stair step retrolisthesis C5 on C6 and C6 on C7, and mild anterolisthesis C7 on T1 in association with straightening of the cervical lordosis. VERTEBRAE: No MR evidence of acute-subacute fracture. Vertebral body heights maintained. Spondylosis. Tiny hemangioma T4 vertebral body. DISCS: Multilevel variable intervertebral disc desiccation and loss of intervertebral disc height of the visualized cervicothoracic spine. HARDWARE: None in the cervical spine. CORD: Normal in size and signal intensity. INDIVIDUAL LEVELS: C1-C2: No spinal canal stenosis. C2-C3: No diffuse disc bulge or focal herniation. Bilateral hypertrophic facet arthropathy. No spinal canal stenosis. Bilateral neural foraminal stenosis. C3-C4: Posterior disc osteophyte complex indenting the ventral thecal sac. Bilateral hypertrophic facet arthropathy. Bilateral uncovertebral joint disease. Moderate spinal canal stenosis. Bilateral neural foraminal stenosis. C4-C5: Posterior disc osteophyte complex indenting the ventral thecal sac. Bilateral hypertrophic facet arthropathy. Bilateral uncovertebral joint disease. Mild spinal canal stenosis. Bilateral neural foraminal stenosis. C5-C6: Posterior disc osteophyte complex indenting the ventral thecal sac. Bilateral hypertrophic facet arthropathy. Bilateral uncovertebral joint disease. Moderate, approaching moderate-severe, spinal canal stenosis. Bilateral neural foraminal stenosis. C6-C7: Posterior disc osteophyte complex indenting the ventral thecal sac. Bilateral hypertrophic facet arthropathy. Bilateral uncovertebral joint disease. Moderate-severe spinal canal stenosis. Bilateral neural foraminal stenosis. C7-T1: Slight uncovering of the intervertebral disc with posterior disc bulge and tiny central disc protrusion indenting the ventral thecal sac. Bilateral hypertrophic facet arthropathy. Bilateral uncovertebral joint disease. No significant spinal canal stenosis. Bilateral inferior neural foraminal stenosis. BASE OF BRAIN: No significant finding. UPPER THORACIC: Incompletely imaged. No significant spinal stenosis or foraminal stenosis. OTHER: No other significant finding. IMPRESSION: Constellation of spondylolisthesis with straightening of the cervical lordosis, spondylosis, and degenerative disc disease of the cervical spine as detailed level by level above. THIS IS AN ELECTRONICALLY VERIFIED FINAL REPORT 11/09/2024 9:56 AM - Electronically signed by Jeffrey See M.D. DEWAYNE: DEWAYNE Report ID: [id number] Reading Location: [place] [address] Procedure Note Jeffrey See MD - 11/09/2024 EXAM DESCRIPTION: MRI CERVICAL SPINE WO CONTRAST REASON FOR STUDY: Chronic nontraumatic neck pain radiating into the right shoulder, worsening over the past year. No provided history of inciting and/or aggravating events. No provided past medical or surgical history. TECHNIQUE: Sagittal and axial imaging of the cervical spine includes T1,T2, STIR and gradient echo sequences. Images saved to PACS. COMPARISON: Cervical spine radiograph 09/07/2024; DEXA scan 09/04/2024: Reported as low bone mass. FINDINGS: ALIGNMENT: Variable minimal to mild stair step anterolisthesis C3 on C4, variable minimal to mild stair step retrolisthesis C5 on C6 and C6 on C7,and mild anterolisthesis C7 on T1 in association with straightening of the cervical lordosis. VERTEBRAE: No MR evidence of acute-subacute fracture. Vertebral body heights maintained. Spondylosis. Tiny hemangioma T4 vertebral body. DISCS: Multilevel variable intervertebral disc desiccation and loss of intervertebral disc height of the visualized cervicothoracic spine. HARDWARE: None in the cervical spine. CORD: Normal in size and signal intensity. INDIVIDUAL LEVELS: C1-C2: No spinal canal stenosis. C2-C3: No diffuse disc bulge or focal herniation. Bilateralhypertrophic facet arthropathy. No spinal canal stenosis. Bilateral neural foraminal stenosis. C3-C4: Posterior disc osteophyte complex indenting the ventral thecalsac. Bilateral hypertrophic facet arthropathy. Bilateral uncovertebral joint disease. Moderate spinal canal stenosis. Bilateral neural foraminal stenosis. C4-C5: Posterior disc osteophyte complex indenting the ventral thecalsac. Bilateral hypertrophic facet arthropathy. Bilateral uncovertebral joint disease. Mild spinal canal stenosis. Bilateral neural foraminalstenosis. C5-C6: Posterior disc osteophyte complex indenting the ventral thecalsac. Bilateral hypertrophic facet arthropathy. Bilateral uncovertebral joint disease. Moderate, approaching moderate-severe, spinal canal stenosis. Bilateral neural foraminal stenosis. C6-C7: Posterior disc osteophyte complex indenting the ventral thecalsac. Bilateral hypertrophic facet arthropathy. Bilateral uncovertebral joint disease. Moderate-severe spinal canal stenosis. Bilateral neuralforaminal stenosis. C7-T1: Slight uncovering of the intervertebral disc with posterior disc bulge and tiny central disc protrusion indenting the ventral thecal sac. Bilateral hypertrophic facet arthropathy. Bilateral uncovertebral joint disease. No significant spinal canal stenosis. Bilateral inferior neural foraminal stenosis. BASE OF BRAIN: No significant finding. UPPER THORACIC: Incompletely imaged. No significant spinal stenosis or foraminal stenosis. OTHER: No other significant finding. IMPRESSION: Constellation of spondylolisthesis with straightening of the cervical lordosis, spondylosis, and degenerative disc disease of thecervical spine as detailed level by level above. THIS IS AN ELECTRONICALLY VERIFIED FINAL REPORT 11/09/2024 9:56 AM - Electronically signed by Jeffrey See M.D. DEWAYNE: DEWAYNE Report ID: [id number] Reading Location: [id number] us Provider Transcribed Order IMG MRI PROCEDURES Fi nal Result * XR Knee Right 1 or 2 Views (09/16/2024 10:36 AM CDT) Anatomical Region Laterality Modality Lower Extremities, Knee Right Computed Radiography 09/16/2024 6:30 PM CDT Narrative 09/16/2024 6:35 PM CDT EXAM DESCRIPTION: XR KNEE LEFT 1 OR 2 VIEWS; XR KNEE RIGHT 1 OR 2 VIEWS REASON FOR STUDY: pain Bilateral knee pain x 1 year. FINDINGS: Two views each knee submitted without comparison. No acute fracture. Alignment is normal. Chondrocalcinosis is present with possible extrusion of the bilateral medial meniscal bodies. Joint space heights are normal. Small knee effusions. Arterial atherosclerosis. IMPRESSION: Bilateral chondrocalcinosis with possible extrusion/displaced flap fragments of the bilateral medial meniscal bodies. This can be further evaluated with MRI if clinical concern for underlying meniscal tear. Small bilateral knee effusions. THIS IS AN ELECTRONICALLY VERIFIED FINAL REPORT 09/16/2024 6:35 PM - Electronically signed by Woo Farias M.D. MF: CALVIN Report ID: [id number] Reading Location: [id number] Procedure Note Woo Farias MD - 09/16/2024 EXAM DESCRIPTION: XR KNEE LEFT 1 OR 2 VIEWS; XR KNEE RIGHT 1 OR 2 VIEWS REASON FOR STUDY: pain Bilateral knee pain x 1 year. FINDINGS: Two views each knee submitted without comparison. No acute fracture. Alignment is normal. Chondrocalcinosis is presentwith possible extrusion of the bilateral medial meniscal bodies. Joint space heights are normal. Small knee effusions. Arterial atherosclerosis. IMPRESSION: Bilateral chondrocalcinosis with possible extrusion/displaced flapfragments of the bilateral medial meniscal bodies. This can be further evaluatedwith MRI if clinical concern for underlying meniscal tear. Small bilateral knee effusions. THIS IS AN ELECTRONICALLY VERIFIED FINAL REPORT 09/16/2024 6:35 PM - Electronically signed by Woo Farias M.D. MF: CALVIN Report ID: [id number] Reading Location: [id number] Irasema Rafael Shah PHILOSOPHY FACULTY MEMBER IMG XR PROCEDURES Final Result * XR Knee Left 1 or 2 Views (09/16/2024 10:36 AM CDT) Anatomical Region Laterality Modality Lower Extremities, Knee Left Computed Radiography 09/16/2024 6:30 PM CDT Narrative 09/16/2024 6:35 PM CDT EXAM DESCRIPTION: XR KNEE LEFT 1 OR 2 VIEWS; XR KNEE RIGHT 1 OR 2 VIEWS REASON FOR STUDY: pain Bilateral knee pain x 1 year. FINDINGS: Two views each knee submitted without comparison. No acute fracture. Alignment is normal. Chondrocalcinosis is present with possible extrusion of the bilateral medial meniscal bodies. Joint space heights are normal. Small knee effusions. Arterial atherosclerosis. IMPRESSION: Bilateral chondrocalcinosis with possible extrusion/displaced flap fragments of the bilateral medial meniscal bodies. This can be further evaluated with MRI if clinical concern for underlying meniscal tear. Small bilateral knee effusions. THIS IS AN ELECTRONICALLY VERIFIED FINAL REPORT 09/16/2024 6:35 PM - Electronically signed by Woo Farias M.D. MF: CALVIN Report ID: [id number] Reading Location: [id number] Procedure Note Woo Farias MD - 09/16/2024 EXAM DESCRIPTION: XR KNEE LEFT 1 OR 2 VIEWS; XR KNEE RIGHT 1 OR 2 VIEWS REASON FOR STUDY: pain Bilateral knee pain x 1 year. FINDINGS: Two views each knee submitted without comparison. No acute fracture. Alignment is normal. Chondrocalcinosis is presentwith possible extrusion of the bilateral medial meniscal bodies. Joint space heights are normal. Small knee effusions. Arterial atherosclerosis. IMPRESSION: Bilateral chondrocalcinosis with possible extrusion/displaced flapfragments of the bilateral medial meniscal bodies. This can be further evaluatedwith MRI if clinical concern for underlying meniscal tear. Small bilateral knee effusions. THIS IS AN ELECTRONICALLY VERIFIED FINAL REPORT 09/16/2024 6:35 PM - Electronically signed by Woo SIMPSON: CALVIN Report ID: [id number] Reading Location: [id number] Irasema Shah NP IMG XR PROCEDURES Final Result * XR Spine Cervical 2 or 3 Views (09/07/2024 3:36 PM CDT) Anatomical Region Laterality Modality Spine N/A Computed Radiogr aphy 09/12/2024 10:0 5 PM CDT Narrative 09/12/2024 10:10 PM CDT EXAM DESCRIPTION: XR SPINE CERVICAL 2 OR 3 VIEWS REASON FOR STUDY: Cervical pain Chronic Intermittent pain TECHNIQUE: There are 3 radiographic view(s) of the cervical spine. COMPARISON: Prior exam 12/14/2021 FINDINGS: There is straightening of the cervical spine. Minimal anterolisthesis C2 on C3 as was previously seen. Minimal anterolisthesis C4 on C5 as was previously seen. Mild retrolisthesis C5 on C6 as was previously seen. Very limited view of the lower cervical spine despite swimmer's view. No definite fracture. Preservation of vertebral body height otherwise. Fairly moderate multilevel degenerative endplate change mid through lower cervical spine. Moderate multilevel facet arthropathy. Fairly moderate to severe multilevel disc space narrowing C5-6, C6-7 and C7-T1. Milder change superiorly. Uzmh-[id number]-[id number] multilevel uncovertebral joint hypertrophy. Soft tissues are unremarkable. IMPRESSION: Moderate to severe spondylosis cervical spine as above. Limited view of the lower cervical spine despite swimmer's view. No fracture. Follow-up could be obtained only as clinically warranted. THIS IS AN ELECTRONICALLY VERIFIED FINAL REPORT 09/12/2024 10:10 PM - Electronically signed by Woo Leyva M.D. MJ: DE Report ID: [id number] Reading Location: [id number] Procedure Note Woo Leyva MD - 09/12/2024 EXAM DESCRIPTION: XR SPINE CERVICAL 2 OR 3 VIEWS REASON FOR STUDY: Cervical pain Chronic Intermittent pain TECHNIQUE: There are 3 radiographic view(s) of the cervical spine. COMPARISON: Prior exam 12/14/2021 FINDINGS: There is straightening of the cervical spine. Minimal anterolisthesis C2 on C3 as was previously seen. Minimal anterolisthesisC4 on C5 as was previously seen. Mild retrolisthesis C5 on C6 as waspreviously seen. Very limited view of the lower cervical spine despite swimmer'sview. No definite fracture. Preservation of vertebral body height otherwise. Fairly moderatemultilevel degenerative endplate change mid through lower cervical spine. Moderate multilevel facet arthropathy. Fairly moderate to severe multilevel discspace narrowing C5-6, C6-7 and C7-T1. Milder change superiorly.Rtuh-sa-kxkgotkj multilevel uncovertebral joint hypertrophy. Soft tissues areunremarkable. IMPRESSION: Moderate to severe spondylosis cervical spine as above. Limited view of the lower cervical spine despite swimmer's view. No fracture. Follow-up could be obtained only as clinically warranted. THIS IS AN ELECTRONICALLY VERIFIED FINAL REPORT 09/12/2024 10:10 PM - Electronically signed by Woo Leyva M.D. MJ: DE Report ID: [id number] Reading Location: [id number] Irasema Shah PHILOSOPHY FACULTY MEMBER IMG XR PROCEDURES Final Result * Dexa Axial Skeleton Bone Density 1 or 2 Site (09/04/2024 1:58 PM CDT) Anatomical Region Laterality Modality Body N/A Mammography 09/06/2024 10:1 4 AM CDT Narrative 09/06/2024 10:17 AM CDT EXAM DESCRIPTION: DEXA AXIAL SKELETON BONE DENSITY 1 OR MORE SITES REASON FOR STUDY: 84 y/o year old F with given history of: screening for osteoporosis Home Care Assistant/Model: [employer] A (S/N [id number]) Facility LSC value of 0.022 for the AP spine, 0.027 for the femur, and 0.023 for the forearm. CLINICAL INFORMATION: Current height: 60.5 inches Maximum height: 64 inches Weight: 124 pounds Risk factors: Postmenopausal COMPARISON: 07/10/2022 Dissimilar scan types or analysis methods precludes assessment for calculating a significant change. FINDINGS: AP LUMBAR SPINE L1-L4: Total BMD is 1.342 g/cm2 T-score is 2.7 LEFT HIP: Total BMD is 0.746 g/cm2 T-score is -1.6 This is decreased in comparison to prior exam, which is statistically significant. Femoral neck BMD is 0.627 g/cm2 T-score is -2.1 FRAX: 10 year risk for a major osteoporotic fracture is 9.0 %, 10 year risk for a hip fracture is 2.8 % Per National Osteoporosis Foundation guidelines, this patient does not meet the criteria for pharmacological treatment of patients with FRAX 10 year major osteoporotic fracture risk scores of = or greater than 20% or a 10 year probability of a hip fracture = or greater than 3%, to reduce fracture risk. Additional factors such as frequent falls are not represented in FRAX and warrant individual clinical judgment. IMPRESSION: Low Bone Mass. REFERENCE: Bone mineral density: T-Score: Normal (T-score above or = -1.0) Low bone mass (T-score between -1.0 and -2.5) replaces the previously used term osteopenia Osteoporosis (T-score = or below -2.5) Z-Score: Within the expected range for age (Z-score above -2.0) Below the expected range for age (Z-score is -2.0 or below) Please see below follow up recommendations. Medical evaluation for secondary causes of low bone mineral density may be appropriate. FRAX is a World Health Organization validated fracture risk assessment tool that calculates a person's 10 year probability of a major osteoporosis related fracture and hip fracture. According to the National Osteoporosis Foundation guidelines, postmenopausal women and men age 50 or older with low bone mass and a 10 year probability of a major osteoporosis related fracture = or greater than 20% or a 10 year probability of a hip fracture = or greater than 3% should be considered for pharmacological treatment for the prevention of osteoporosis. For further information, including treatment recommendations, please refer to the 2019 ISCD Official Positions (http://www.iscd.org) and the NOF's Clinician's Guide to Prevention and Treatment of Osteoporosis (http://www.nof.org/professionals/clinical-guidelines) THIS IS AN ELECTRONICALLY VERIFIED FINAL REPORT 09/06/2024 10:17 AM - Electronically signed by Woo Farias M.D. MF: CALVIN Report ID: [id number] Reading Location: [id number] Procedure Note Woo Farias MD - 09/06/2024 EXAM DESCRIPTION: DEXA AXIAL SKELETON BONE DENSITY 1 OR MORE SITES REASON FOR STUDY: 84 y/o year old F with given history of: screeningfor osteoporosis Home Care Assistant/Model: [employer] A (S/N [id number]) Facility LSC value of 0.022 for the AP spine, 0.027 for the femur, and0.023 for the forearm. CLINICAL INFORMATION: Current height: 60.5 inches Maximum height: 64 inches Weight: 124 pounds Risk factors: Postmenopausal COMPARISON: 07/10/2022 Dissimilar scan types or analysis methods precludes assessment for calculating a significant change. FINDINGS: AP LUMBAR SPINE L1-L4: Total BMD is 1.342 g/cm2 T-score is 2.7 LEFT HIP: Total BMD is 0.746 g/cm2 T-score is -1.6 This is decreased in comparison to prior exam, which is statistically significant. Femoral neck BMD is 0.627 g/cm2 T-score is -2.1 FRAX: 10 year risk for a major osteoporotic fracture is 9.0 %, 10 year risk fora hip fracture is 2.8 % Per National Osteoporosis Foundation guidelines, this patient does notmeet the criteria for pharmacological treatment of patients with FRAX 10 yearmajor osteoporotic fracture risk scores of = or greater than 20% or a 10 year probability of a hip fracture = or greater than 3%, to reduce fracturerisk. Additional factors such as frequent falls are not represented in FRAX and warrant individual clinical judgment. IMPRESSION: Low Bone Mass. REFERENCE: Bone mineral density: T-Score: Normal (T-score above or = -1.0) Low bone mass (T-score between -1.0 and -2.5) replaces thepreviously used term osteopenia Osteoporosis (T-score = or below -2.5) Z-Score: Within the expected range for age (Z-score above -2.0) Below the expected range for age (Z-score is -2.0 or below) Please see below follow up recommendations. Medical evaluation forsecondary causes of low bone mineral density may be appropriate. FRAX is a World Health Organization validated fracture risk assessmenttool that calculates a person's 10 year probability of a major osteoporosisrelated fracture and hip fracture. According to the National OsteoporosisFoundation guidelines, postmenopausal women and men age 50 or older with low bonemass and a 10 year probability of a major osteoporosis related fracture = or greater than 20% or a 10 year probability of a hip fracture = or greaterthan 3% should be considered for pharmacological treatment for the preventionof osteoporosis. For further information, including treatment recommendations, please referto the 2019 ISCD Official Positions (http://www.iscd.org) and the NOF's Clinician's Guide to Prevention and Treatment of Osteoporosis (http://www.nof.org/professionals/clinical-guidelines) THIS IS AN ELECTRONICALLY VERIFIED FINAL REPORT 09/06/2024 10:17 AM - Electronically signed by Woo Farias M.D. MF: CALVIN Report ID: [id number] Reading Location: [place] [address] Irasema Shah NP IMG DXA PROCEDURES Final Result * XR Shoulder Right 2 or More Views (09/04/2024 1:43 PM CDT) Anatomical Region Laterality Modality Upper Extremities, Shoulder Right Comp uted Radiography 09/06/2024 12:1 1 AM CDT Narrative 09/06/2024 12:14 AM CDT EXAM DESCRIPTION: XR SHOULDER RIGHT 2 OR MORE VIEWS REASON FOR STUDY: pain in right shoulder NKI, pain for 20+ years, pain in right shoulder travels down arm to wrist FINDINGS: Four views right shoulder submitted with comparison 03/04/2024. Progressive severe right rotator cuff arthropathy with humeral head osteonecrosis and articular surface collapse. Moderate acromioclavicular joint osteoarthritis. Arterial atherosclerosis present. No acute fracture. Marked distention of the subacromial subdeltoid bursa is present. IMPRESSION: Progressive severe right rotator cuff arthropathy with humeral head osteonecrosis and articular surface collapse. Marked distention of the right subacromial subdeltoid bursa. THIS IS AN ELECTRONICALLY VERIFIED FINAL REPORT 09/06/2024 12:14 AM - Electronically signed by Woo SIMPSON: CALVIN Report ID: [id number] Reading Location: [id number] Procedure Note Woo Farias MD - 09/06/2024 EXAM DESCRIPTION: XR SHOULDER RIGHT 2 OR MORE VIEWS REASON FOR STUDY: pain in right shoulder NKI, pain for 20+ years, pain in right shoulder travels down arm to wrist FINDINGS: Four views right shoulder submitted with [id number]/06/2024. Progressive severe right rotator cuff arthropathy with humeral head osteonecrosis and articular surface collapse. Moderate acromioclavicular joint osteoarthritis. Arterial atherosclerosis present. No acutefracture. Marked distention of the subacromial subdeltoid bursa is present. IMPRESSION: Progressive severe right rotator cuff arthropathy with humeral head osteonecrosis and articular surface collapse. Marked distention of the right subacromial subdeltoid bursa. THIS IS AN ELECTRONICALLY VERIFIED FINAL REPORT 09/06/2024 12:14 AM - Electronically signed by Woo SIMPSON: CALVIN Report ID: [id number] Reading Location: [id number] Irasema Shah NP IMG XR PROCEDURES Final Result * XR Shoulder Left 2 or More Views (09/04/2024 1:43 PM CDT) Anatomical Region Laterality Modality Upper Extremities, Shoulder Left Comp uted Radiography 09/06/2024 12:1 4 AM CDT Narrative 09/06/2024 12:16 AM CDT EXAM DESCRIPTION: XR SHOULDER LEFT 2 OR MORE VIEWS REASON FOR STUDY: Left shoulder osteoarthritis. FINDINGS: Four views submitted with comparison 06/10/2024. No acute fracture. Alignment is normal. Severe left glenohumeral joint osteoarthritis. Mild acromioclavicular joint osteoarthritis. Arterial atherosclerosis is present. IMPRESSION: Severe left glenohumeral joint osteoarthritis. THIS IS AN ELECTRONICALLY VERIFIED FINAL REPORT 09/06/2024 12:16 AM - Electronically signed by Woo Farias M.D. MF: CALVIN Report ID: [id number] Reading Location: [id number] Procedure Note Woo Farias MD - 09/06/2024 EXAM DESCRIPTION: XR SHOULDER LEFT 2 OR MORE VIEWS REASON FOR STUDY: Left shoulder osteoarthritis. FINDINGS: Four views submitted with comparison 06/10/2024. No acute fracture. Alignment is normal. Severe left glenohumeral joint osteoarthritis. Mild acromioclavicular joint osteoarthritis. Arterial atherosclerosis is present. IMPRESSION: Severe left glenohumeral joint osteoarthritis. THIS IS AN ELECTRONICALLY VERIFIED FINAL REPORT 09/06/2024 12:16 AM - Electronically signed by Woo Farias M.D. MF: CALVIN Report ID: [id number] Reading Location: [id number] Irasema Shah NP IMG XR PROCEDURES Final Result from Last 3 Months Insurance [employer] MEDICARE HMO [facility] MEDICARE HMO Advance Directives For more information, please contact: [phone] Documents on File Type Date Recorded Patient Record Tester Expl anation Power of Transport Rn 10/01/2023 6:06 AM * Full Code (Latest Code Status on File) Date Activated Date Inactivated Comments 10/01/2023 10:47 AM 10/02/2023 5:36 PM * Full Code Date Activated Date Inactivated Comments 10/01/2023 10:47 AM 10/01/2023 10:47 AM Care Teams Superintendent Automotive Relationship Specialty Start Date End Date Alana Donis MD [address] [place] [address] PCP - General Family Medicine 11/02/21 Denver Camacho MD [address] [facility] [address] [place] [address] Consulting Physician Interventional Cardiology 09/16/23 Jose Rubio MD [address] [address] Consulting Physician Pulmonary Disease 09/16/23 Vishal Sosa MD [address] [facility] [address] [place] [address] [place] [id number] Referring Physician Hematology 09/16/23 Woo Santos MD [address] [facility] [place] [address] [place] [id number] Consulting Physician Orthopedic Surgery 09/16/23 Gordon Castro MD [address] [facility] [place] [address] [place] [id number] Consulting Physician Pulmonary Disease 09/16/23
--- OUTSIDE RECORDS SUMMARY | 2024-11-11 09:51 | XMS_ITS | Referral Summary ---
Author Organization [address] Address [address] [address] Care Team Providers Care Bakery Team Leader Name Role Phone Alana Donis MD Primary Care Provi flor Denver Camacho MD Unavailable Jose Rubio MD Unavailable [phone] Vishal Sosa MD Unavailable [phone] Woo Santos MD Unavailable [phone] Gordon Castro MD Unavailable [phone] Encounters Date Type Department Care Team Description 11/07/2024 6:50 AM CDT - 11/07/2024 11:59 PM CDT Hospital Encounter [facility] MRI [address] [place], [place] [id number] Cervical pain Discharge Disposition: Discharge to home or self care 09/16/2024 10:26 AM CDT - 09/16/2024 11:59 PM CDT Hospital Encounter [facility] MOB 1 DIAG IMG [address] [place], [place] [phone] Bilateral primary osteoarthritis of knee Discharge Disposition: Discharge to home or self care 09/16/2024 Results Follow-Up [facility] Family Medicine [address] [place] [id number] Alana Donis MD Dexa Axial Skeleton Bone Density 1 or 2 Site 09/07/2024 2:30 PM CDT - 09/07/2024 11:59 PM CDT Hospital Encounter [facility] MOB 1 DIAG IMG [address] [place] [address] Discharge Disposition: Discharge to home or self care 09/04/2024 12:54 PM CDT - 09/04/2024 11:59 PM CDT Hospital Encounter [facility] MOB 1 DIAG IMG [address] [place] [address] Right shoulder pain, unspecified chronicity; Cervical pain; Pain Discharge Disposition: Discharge to home or self care 09/04/2024 1:41 PM CDT - 09/04/2024 11:59 PM CDT Hospital Encounter [facility] Medical Office Bldg 1 [facility] [address] [facility] [address] [place] [address] Screening for osteoporosis Discharge Disposition: Discharge to home or self care from Last 3 Months Allergies No known active allergies Medications ascorbic [...] mask that she would like ordered. DME [facility] Assessment & Plan (07/16/2023 12:29 PM CDT): Due to the eye puffiness and leakage, I have decreased the pressure to 16 cm water pressure. I also provided the patient an F30 mask to see if this may help. DME is [facility] PLMD (periodic limb movement disorder) Assessment & [...] 01/04/2023 Assessment & Plan (05/29/2023 1:44 PM TOP INSTALLER): Chronic, uncertain if progression She has noticed a cough which is improved by Advair We discussed adjusting her dose, she will consider Update me if her symptoms change or worsen Call for questions Chronic diastolic congestive heart failure 01/04 Assessment & Plan (05/29/2023 1:43 PM TOP INSTALLER): Chronic, stable Continue current regimen Keep appointment with Cardiology at the end of May Update me with any changes or concerns Exocrine pancreatic insufficiency 11/29/2022 Assessment & Plan (12/20/2022 9:57 AM CDT): Chronic, previously followed by [facility] We can certainly continue it given her endo retired She feels that her symptoms are improved with zenpep Update me when she needs a refill Call for questions Pulmonary nodules 10/21/2022 Overview (10/21/2022): will reach out to radiology-?when to recheck CT Assessment & Plan (05/29/2023 1:44 PM TOP INSTALLER): Acute, improved Continue to follow with Pulmonary [...] up. Assessment & Plan (05/21/2024 4:47 PM TOP INSTALLER): Reviewed healthy diet changes and activity to [...] (03/07/2022): Added automatically from request for surgery [id number] Assessment & Plan (08/16/2022 10:44 AM CDT): Chronic, improved post surgery Continue supportive care Update me if it worsens Carpal tunnel syndrome on right 02/20/2022 Overview (02/20/2022): Added automatically from request for surgery [id number] Assessment & Plan (08/16/2022 10:44 AM CDT): Chronic, improved post surgery Continue supportive care Update me if it worsens Primary hypertension 12/13/2021 Assessment & Plan (08/21/2023 8:11 AM CDT): Chronic, stable -though low this morning, it has been running well on her current regimen Continue her current regimen for now Continue to monitor Assessment & Plan (05/29/2023 1:44 PM TOP INSTALLER): Chronic, stable Continue her current regimen Assessment & Plan (08/16/2022 10:29 AM CDT): Chronic, stable Continue current regimen Continue healthy changes Assessment & Plan (03/15/2022 10:21 AM TOP INSTALLER): Chronic, with progression Will have her check [...] today. Assessment & Plan (05/29/2023 1:43 PM TOP INSTALLER): Chronic, stable Continue current dose of levothyroxine [...] daily Assessment & Plan (05/29/2023 1:43 PM TOP INSTALLER): Chronic, stable Referral to Nephrology given that [...] 05/21/2024 Assessment & Plan (05/29/2023 1:43 PM TOP INSTALLER): Acute, new ? Related to lisinopril Will recheck Consider adjusting her regimen if still elevated Assessment & Plan (08/16/2022 10:28 AM CDT): Resolved Continue to monitor Immunizations Immunization Administration Dates Next Due Influenza, Quadrivalent, Hig h Dose, Preservative Free, Intrr 01/31/2023,01/04/2022 Influenza, Trivalent, High D ose, Split, Preservative Free, Intramuscular 01/08/2024 Influenza, Unspecified 12/28/2020 Pneumococcal Conjugate Pcv20 01/04/2022 RSV Vaccine, Pref, Recombina nt, Subunit, Adjuvanted, PF, IM (Arexvy) 01/08/2024 RSV, Bivalent, Protein Subun it Rsvpref, Diluent (Abrysvo) 12/29/2022 Sars-cov-2 Covid-19 Mrna, Bi valent, Original/omicron Ba.1, A 01/31/2023 Tdap 12/29/2022 Social History Tobacco Use Types Packs/Day Years Used Date Smoking Tobacco: Never Passive Smoke Exposure: Past Smokeless Tobacco: Never Tobacco Cessation:Counseling Given: Not Answered [facility] Utilities Answer Date Recorded In the past 12 months has e [employer], gas, oil, or water [employer] threatened to shut off services in your [...] week 10/02/2023 How often do you attend [facility] or cheondo[employer] services? 1 to 4 times per year 10/02/2023 Do you belong to any clubs o r organizations such as yarsanism groups, unions, fraternal or athletic groups, or [...] any time in the past 12 [facility], were you homeless or living in a correction (including now)? No 10/02/2023 Personal Safety Answer [...] CDT Respiratory Rate 12 05/21/2024 1:32 PM TOP INSTALLER Oxygen Saturation 95% 05/27/2024 1:42 PM TOP INSTALLER Inhaled Oxygen Concentration - - Weight 56.5 kg (124 lb 9.6 oz) 07/22/2024 9:38 A M CDT Height 160 cm (5' 2.99) 07/22/2024 9:38 AM CDT Body Mass Index 22.08 07/22/2024 9:38 AM CDT Plan of Treatment Not on file Medical Devices Implanted Type Area Aircraft Mechanic Armament Device Identifier Shelf Expiration Date Model / Serial / Lot [employer] Vascular System Closure Repair Femoral Artery Suture Mediated Perclose Prostyle 96989-10 - [id number] Implanted:Qty: 1 on 10/01/2023 by Denver Camacho MD at [facility] Vascular Closure Device Left: Femoral [employer] 11/27/2023 33092-30 / / [id number] [employer] V[employer] System Closure Repair Femoral Artery Suture Mediated Perclose Prostyle 16200-60 - [id number] Implanted:Qty: 1 on 10/01/2023 by Denver Camacho MD at [facility] Vascular Closure Device Left: Femoral [employer] 06/26/2025 07552-50 / / [id number] [employer] Angio-Seal Vip 6fr Closere Device [id number] - [id number] Implanted:Qty: 1 on 10/01/2023 by Facundo Reyna MD at [facility] Right: Femoral [employer] 05/06/2024 [id number] / / [id number] 41 [employer] Valve Heart 23mm Shaina 3 Transcatheter [id number] - [id number] - [id number] Implanted:Qty: 1 on 10/01/2023 by Denver Camacho MD at [facility] Aortic Valve [employer] [id number] 11/06/2025 [id number] / [id number] / Procedures Procedure Name Priority Date/Time Associated [...] Jeffrey See M.D. DEWAYNE: DEWAYNE Report ID: [id number] Reading Location: [place] [address] Procedure Note Jeffrey See MD - 11/09/2024 [...] Jeffrey See M.D. DEWAYNE: DEWAYNE Report ID: [id number] Reading Location: [id number] us Provider Transcribed Order IMG MRI PROCEDURES [...] Woo Farias M.D. MF: CALVIN Report ID: [id number] Reading Location: [id number] Procedure Note Woo Farias MD - 09/16/2024 [...] Woo Farias M.D. MF: CALVIN Report ID: [id number] Reading Location: [id number] Irasema Shah NP IMG XR PROCEDURES Final [...] Woo Farias M.D. MF: CALVIN Report ID: [id number] Reading Location: [id number] Procedure Note Woo Farias MD - 09/16/2024 [...] Woo Farias M.D. MF: CALVIN Report ID: [id number] Reading Location: [place] [address] Irasema Shah NP IMG XR PROCEDURES Final [...] C5-6, C6-7 and C7-T1. Milder change superiorly. Eiit-mb-otgfkkxw multilevel uncovertebral joint hypertrophy. Soft tissues are unremarkable. IMPRESSION: Moderate to severe spondylosis cervical spine as above. Limited view of the lower cervical spine despite swimmer's view. No fracture. Follow-up could be obtained only as clinically warranted. THIS IS AN ELECTRONICALLY VERIFIED FINAL REPORT 09/12/2024 10:10 PM - Electronically signed by Woo KC Report ID: [id number] Reading Location: [id number] Procedure Note Woo Leyva MD - 09/12/2024 [...] narrowing C5-6, C6-7 and C7-T1. Milder change superiorly.Rmie-qz-lqphjubp multilevel uncovertebral joint hypertrophy. Soft tissues areunremarkable. IMPRESSION: Moderate to severe spondylosis cervical spine as above. Limited view of the lower cervical spine despite swimmer's view. No fracture. Follow-up could be obtained only as clinically warranted. THIS IS AN ELECTRONICALLY VERIFIED FINAL REPORT 09/12/2024 10:10 PM - Electronically signed by Woo KC: DE Report ID: [id number] Reading Location: [id number] Irasema Shah NP IMG XR PROCEDURES Final Result * Dexa Axial Skeleton Bone Density 1 or 2 Site (09/04/2024 1:58 PM CDT) Anatomical Region Laterality Modality Body N/A Mammography 09/06/2024 10:1 4 AM CDT Narrative 09/06/2024 10:17 AM CDT EXAM DESCRIPTION: DEXA AXIAL SKELETON BONE DENSITY 1 OR MORE SITES REASON FOR STUDY: 84 y/o year old F with given history of: screening for osteoporosis Aircraft Mechanic Armament/Model: [facility] A (S/N [id number]) Facility LSC value of 0.022 for the [...] Woo Farias M.D. MF: CALVIN Report ID: [id number] Reading Location: [place] [address] Procedure Note Woo Farias MD - 09/06/2024 EXAM DESCRIPTION: DEXA AXIAL SKELETON BONE DENSITY 1 OR MORE SITES REASON FOR STUDY: 84 y/o year old F with given history of: screeningfor osteoporosis Aircraft Mechanic Armament/Model: [facility] (S/N [id number]) Facility LSC value of 0.022 for the [...] Woo Farias M.D. MF: CALVIN Report ID: [id number] Reading Location: [id number] Irasema Shah NP IMG DXA PROCEDURES Final [...] 12:14 AM - Electronically signed by Woo Farias M.D. MF: CALVIN Report ID: [id number] Reading Location: [id number] Procedure Note Woo Farias MD - 09/06/2024 EXAM DESCRIPTION: XR SHOULDER RIGHT 2 OR MORE VIEWS REASON FOR STUDY: pain in right shoulder NKI, pain for 20+ years, pain in right shoulder travels down arm to wrist FINDINGS: Four views right shoulder submitted with zjckorpdnl60/06/2024. Progressive severe right rotator cuff arthropathy with [...] signed by Woo SIMPSON: CALVIN Report ID: [id number] Reading Location: [id number] us Irasema Shah NP IMG XR PROCEDURES Final [...] Woo Farias M.D. MF: CALVIN Report ID: [id number] Reading Location: [id number] Procedure Note Woo Farias MD - 09/06/2024 [...] Woo Farias M.D. MF: CALVIN Report ID: [id number] Reading Location: [id number] us Irasema Shah NP IMG XR PROCEDURES Final Result from Last 3 Months Insurance [employer] MEDICARE HMO [employer] MEDICARE HMO Advance Directives For more information, please contact: [phone] Documents on File Type Date Recorded Patient Platform [employer] anation Power of Photoresist Contact Printer 10/01/2023 6:06 AM * Full Code (Latest Code Status on File) Date Activated Date Inactivated Comments 10/01/2023 10:47 AM 10/02/2023 5:36 PM * Full Code Date Activated Date Inactivated Comments 10/01/2023 10:47 AM 10/01/2023 10:47 AM Care Teams Bakery Team Leader Relationship Specialty Start Date End Date Alana Donis MD [address] [place] [address] PCP - General Family Medicine 11/02/21 Denver Camacho MD [address] [facility] [address] [place] [address] Consulting Physician Interventional Cardiology 09/16/23 Jose Rubio MD [address] [address] Consulting Physician Pulmonary Disease 09/16/23 Vishal Sosa MD [address] [place] [address] Referring Physician Hematology 09/16/23 Woo Santos MD [address] [facility] [address] [place] [address] Consulting Physician Orthopedic Surgery 09/16/23 Gordon Castro MD [address] [facility] [address] [place] [address] Consulting Physician Pulmonary Disease 09/16/23
[2024-11-11 10:17] LABS: Hematocrit 34.3 % (37.0-47.0); Hemoglobin 11.2 g/dL (12.0-15.0); Immature Granulocyte Percent A 0.2 % (0-0.5); Lymphocytes Absolute Auto 1.40 K/mm3 (0.9-3.2); Mean Corpuscular HGB Conc 32.7 g/dl (32-36); Mean Corpuscular Hemoglobin 30.2 pg (26-34); Mean Corpuscular Volume 92.5 fl (80-100); Nucleated Red Blood Cells Absolute Auto 0.000 K/mm3 (0.0-0.012); Nucleated Red Blood Cells Perc 0.0 % (0.0-0.2); Platelet Count Result 165 k/mm3 (150-375); Red Blood Count 3.71 M/mm3 (4.2-5.4); White Blood Count 10.3 K/mm3 (4.5-10.0)
[2024-11-11 13:26] LABS: Alanine Aminotransferase 15 U/L (6-35); Albumin Level 4.1 g/dL (3.5-5.1); Alkaline Phosphatase 91 U/L (38-126); Anion Gap 6 mmol/L (4-12); Aspartate Amino Transferase 29 U/L (14-36); Bilirubin,Total 0.5 mg/dL (0.2-1.3); Blood Urea Nitrogen 26 mg/dL (7-17); Calcium 10.4 mg/dL (8.4-10.2); Carbon Dioxide 29 mmol/L (22-30); Chloride 103 mmol/L (98-107); Estimated Glomerular Filt Rate 40; Glucose 100 mg/dL (65-110); Potassium 5.5 mmol/L (3.4-5.0); Sodium 138 mmol/L (137-145); Total Protein 7.3 g/dL (6.3-8.2)
[2024-11-11 13:33] LABS: Immunoglobulin A 576 mg/dL (70-400); Immunoglobulin G 690 mg/dL (700-1600); Immunoglobulin M 119 mg/dL (40-230)
[2024-11-12 16:08] LABS: Albumin 3.6 g/dL (2.9-4.4); Alpha-1-Globulin 0.3 g/dL (0.0-0.4); Alpha-2-Globulin 0.7 g/dL (0.4-1.0); Gamma Globulin 0.6 g/dL (0.4-1.8)
== END 2024-11-11 09:46 | disposition home or self-care (01) ==
PROVIDERS: PCP Internal Medicine Hematology & Oncology; Visit Provider Internal Medicine Hematology & Oncology
DX: D72.9 Disorder of white blood cells, unspecified (principal)
CPT/HCPCS: 36415; 80053; 82784; 84165; 85025